=== PATIENT | female | born 2000 | race Two or more races ===

== ENCOUNTER → 2020-08-17 | Outpatient (CLI) | payer OTHER | END | disposition home or self-care (01) | LOC: STAR 08:00 → EDSTATUS 08-18 10:45 | PROVIDERS: ATTEND Orthopaedic Surgery Hand Surgery | DX: U07.1 COVID-19 (principal); S62.324A Displaced fracture of shaft of fourth metacarpal bone, right hand, initial encounter for closed fracture; X58.XXXA Exposure to other specified factors, initial encounter; Y93.89 Activity, other specified; Y92.89 Other specified places as the place of occurrence of the external cause; Y99.8 Other external cause status | CPT/HCPCS: 87635 ==

== ENCOUNTER 2020-09-02 11:21 | Outpatient (CLI) | payer OTHER | END 2020-09-02 23:59 | disposition home or self-care (01) | LOC: STAR 11:21 | PROVIDERS: ATTEND Orthopaedic Surgery Hand Surgery | DX: Z02.9 Encounter for administrative examinations, unspecified (principal) ==

== ENCOUNTER 2020-09-08 05:32 | Day surgery (SDC) | payer OTHER ==
[~2020-09-08] VITALS: Ht 165.1 cm; Wt 59.6 kg
[2020-09-08 06:21] VITALS: BP 126/72
[2020-09-08] MEDS ORDERED: FENTANYL PF 250 MCG/5ML ONE (06:24)
[2020-09-08] MEDS ORDERED: MIDAZOLAM 1 MG/ML, 2ML ONE (06:24)
[2020-09-08] MEDS ORDERED: PROPOFOL 10 MG/ML, 20ML ONE (06:26)
[2020-09-08] MEDS ORDERED: ONDANSETRON 2MG/ML, 2ML ONE (06:26)
[2020-09-08] MEDS ORDERED: CEFAZOLIN 1,000 MG ONE (06:26)
[2020-09-08] MEDS ORDERED: CHLORHEXIDINE 15 ML UDC MM ONE (06:30)
[2020-09-08] MEDS ORDERED: LIDOCAINE 1%, 20ML ONE (06:30)
[2020-09-08] MEDS ORDERED: BUPIVACAINE/PF 0.5% ONE (06:30)
[2020-09-08] MEDS ORDERED: LACTATED RINGERS 1,000 ML IV SCH (06:30)
[2020-09-08 06:36] LABS: HCG UR SG 1.023 (1.003-1.030)
[2020-09-08] MEDS ORDERED: DEXAMETHASONE 4 MG/ML, 1ML ONE (06:59)
[2020-09-08] MEDS ORDERED: HYDROmorphone 1 MG/ML, 1ML INJ IVPush PRN (07:00)
[2020-09-08] MEDS ORDERED: PROMETHAZINE 25 MG/ML, 1ML IVPush PRN (07:00)
[2020-09-08] MEDS ORDERED: LABETALOL 5MG/ML, 20ML IV PRN (07:00)
[2020-09-08] MEDS ORDERED: hydrALAzine 20 MG/ML, 1ML IV PRN (07:00)
[2020-09-08] MEDS ORDERED: MEPERIDINE/PF 25MG/0.5ML IVPush PRN (07:00)
[2020-09-08] MEDS ORDERED: HALOPERIDOL 5 MG/ML IV PRN (07:00)
[2020-09-08] MEDS ORDERED: ACETAMINOPHEN 325 MG TABLET PO PRN (07:00)
[2020-09-08] MEDS ORDERED: OXYcodone 5 MG/5 ML ORAL.SOL UDC PO PRN (07:00)
[2020-09-08] MEDS ORDERED: morphine SULFATE 10 MG/ML, 1ML IVPush PRN (07:00)
[2020-09-08] MEDS ORDERED: OXYcodone 5 MG/5 ML ORAL.SOL UDC ONE (08:40)
[2020-09-08] MEDS ORDERED: FENTANYL PF 100 MCG/2ML ONE ×2 (08:40→09:02)
[2020-09-08] MEDS: FENTANYL PF 100 MCG/2ML IV PRN ×2 (08:42→09:05)
[2020-09-08] MEDS ORDERED: ACETAMINOPHEN 650 MG/20.3 ML UDC ONE (08:47)
== END 2020-09-08 10:15 | disposition home or self-care (01) ==
LOC: OUT 05:32
PROVIDERS: ATTEND Orthopaedic Surgery Hand Surgery
DX: S62.324A Displaced fracture of shaft of fourth metacarpal bone, right hand, initial encounter for closed fracture (principal); Z79.1 Long term (current) use of non-steroidal anti-inflammatories (NSAID); Z79.891 Long term (current) use of opiate analgesic; Z86.16 Personal history of COVID-19; W22.8XXA Striking against or struck by other objects, initial encounter; Y93.89 Activity, other specified; Y92.89 Other specified places as the place of occurrence of the external cause; Y99.8 Other external cause status
CPT/HCPCS: 26615; 73120; 81025; C1713; C1762; J0690; J1100; J2250; J2405; J2704; J3010; J7120; 76000